=== PATIENT | female | born 1950 | race Two or more races ===

== ENCOUNTER → 2019-04-06 | Outpatient (CLI) | payer OTHER | END | disposition home or self-care (01) | LOC: MAMO-SONO 14:10 | DX: N60.01 Solitary cyst of right breast (principal); N60.02 Solitary cyst of left breast; D25.2 Subserosal leiomyoma of uterus; Z12.31 Encounter for screening mammogram for malignant neoplasm of breast; Z87.898 Personal history of other specified conditions ==

== ENCOUNTER 2019-06-17 10:55 | Outpatient (CLI) | payer OTHER | END 2019-06-17 11:04 | disposition home or self-care (01) | LOC: NUCLEAR 10:55 | DX: M81.0 Age-related osteoporosis without current pathological fracture (principal) ==

== ENCOUNTER 2020-07-19 14:45 | Outpatient (CLI) | payer OTHER | END 2020-07-19 15:00 | disposition home or self-care (01) | LOC: MAMO-SONO 14:45 | PROVIDERS: ATTEND Specialist | DX: Z12.31 Encounter for screening mammogram for malignant neoplasm of breast (principal); N60.01 Solitary cyst of right breast; N60.02 Solitary cyst of left breast ==

== ENCOUNTER 2020-10-04 10:15 | Outpatient (CLI) | payer OTHER | END 2020-10-04 15:24 | disposition home or self-care (01) | LOC: TOM 10:15 → RAD 10:15 | PROVIDERS: ATTEND Internal Medicine | DX: Q44.6 Cystic disease of liver (principal); Q61.02 Congenital multiple renal cysts; K57.90 Diverticulosis of intestine, part unspecified, without perforation or abscess without bleeding; R10.84 Generalized abdominal pain; I10 Essential (primary) hypertension ==

== ENCOUNTER 2021-03-08 10:11 | Outpatient (CLI) | payer OTHER | END 2021-03-08 10:15 | disposition home or self-care (01) | LOC: NUCLEAR 10:11 | PROVIDERS: ATTEND Internal Medicine | DX: I65.23 Occlusion and stenosis of bilateral carotid arteries (principal) ==

== ENCOUNTER 2021-03-19 10:50 | Outpatient (CLI) | payer OTHER | END 2021-03-19 10:59 | disposition home or self-care (01) | LOC: MRI 10:50 | PROVIDERS: ATTEND Internal Medicine | DX: M25.561 Pain in right knee (principal) | CPT/HCPCS: 73721 ==

== ENCOUNTER 2021-08-15 13:16 | Outpatient (CLI) | payer OTHER | END 2021-08-15 13:30 | disposition home or self-care (01) | LOC: MAMO-SONO 13:16 | DX: R92.0 Mammographic microcalcification found on diagnostic imaging of breast (principal); N60.01 Solitary cyst of right breast; N60.02 Solitary cyst of left breast ==

== ENCOUNTER → 2021-08-21 13:02 | Outpatient (CLI) | payer OTHER | END | disposition home or self-care (01) | LOC: NUCLEAR 13:02 | PROVIDERS: ATTEND Specialist | DX: M81.0 Age-related osteoporosis without current pathological fracture (principal) ==

== ENCOUNTER → 2021-09-11 | Outpatient (CLI) | payer OTHER | END | disposition home or self-care (01) | LOC: NUCLEAR 08-29 07:00 | PROVIDERS: ATTEND Internal Medicine | DX: E21.3 Hyperparathyroidism, unspecified (principal) | CPT/HCPCS: 78070; A9500 ==

== ENCOUNTER 2021-10-03 11:41 | Outpatient (CLI) | payer OTHER | END 2021-10-03 11:48 | disposition home or self-care (01) | LOC: MRI 11:41 | PROVIDERS: ATTEND Orthopaedic Surgery | DX: M25.562 Pain in left knee (principal) | CPT/HCPCS: 73721 ==

== ENCOUNTER 2021-10-22 10:42 | Outpatient (CLI) | payer OTHER | END 2021-10-22 10:50 | disposition home or self-care (01) | LOC: RAD 10:42 | DX: M81.0 Age-related osteoporosis without current pathological fracture (principal); M54.16 Radiculopathy, lumbar region | CPT/HCPCS: 72148 ==

== ENCOUNTER 2022-02-10 12:37 | Outpatient (CLI) | payer OTHER | END 2022-02-10 12:48 | disposition home or self-care (01) | LOC: RAD 12:37 | PROVIDERS: ATTEND Orthopaedic Surgery | DX: M25.561 Pain in right knee (principal); M25.562 Pain in left knee; M25.879 Other specified joint disorders, unspecified ankle and foot ==

== ENCOUNTER 2022-09-23 13:17 | Outpatient (CLI) | payer OTHER | END 2022-09-23 13:38 | disposition home or self-care (01) | LOC: MAMO-SONO 13:17 | PROVIDERS: ATTEND Specialist | DX: N60.01 Solitary cyst of right breast (principal); N60.02 Solitary cyst of left breast ==

== ENCOUNTER 2023-09-29 13:21 | Outpatient (CLI) | payer OTHER | END 2023-09-29 13:26 | disposition home or self-care (01) | LOC: RAD 13:21 | PROVIDERS: ATTEND Specialist | DX: N60.01 Solitary cyst of right breast (principal); N60.02 Solitary cyst of left breast; M25.561 Pain in right knee; M25.562 Pain in left knee; Z12.31 Encounter for screening mammogram for malignant neoplasm of breast ==

== ENCOUNTER → 2023-09-29 | Outpatient (CLI) | payer OTHER | END | disposition home or self-care (01) | LOC: NUCLEAR 11:30 | PROVIDERS: ATTEND Specialist | DX: M81.0 Age-related osteoporosis without current pathological fracture (principal) ==

== ENCOUNTER 2023-10-09 08:35 | Outpatient (CLI) | payer OTHER | END 2023-10-09 08:46 | disposition home or self-care (01) | LOC: RAD 08:35 | PROVIDERS: ATTEND Orthopaedic Surgery | DX: S83.200A Bucket-handle tear of unspecified meniscus, current injury, right knee, initial encounter (principal); E10.9 Type 1 diabetes mellitus without complications; K92.2 Gastrointestinal hemorrhage, unspecified | CPT/HCPCS: 73721 ==

== ENCOUNTER 2024-06-29 13:50 | Outpatient (CLI) | payer OTHER | END 2024-06-29 13:57 | disposition home or self-care (01) | LOC: RAD 13:50 | PROVIDERS: ATTEND Orthopaedic Surgery | DX: M25.561 Pain in right knee (principal); M25.562 Pain in left knee ==

== ENCOUNTER 2024-10-20 09:40 | Outpatient (CLI) | payer OTHER | END 2024-10-20 09:45 | disposition home or self-care (01) | LOC: MAMO-SONO 09:40 | PROVIDERS: ATTEND Specialist | DX: N60.01 Solitary cyst of right breast (principal); N60.02 Solitary cyst of left breast; J20.9 Acute bronchitis, unspecified; Z12.31 Encounter for screening mammogram for malignant neoplasm of breast ==

== ENCOUNTER 2025-02-22 09:59 | Outpatient (CLI) | payer OTHER | END 2025-02-22 10:01 | disposition home or self-care (01) | LOC: SONOGRAMA 09:59 | PROVIDERS: ATTEND Internal Medicine | DX: K76.0 Fatty (change of) liver, not elsewhere classified (principal); R10.9 Unspecified abdominal pain ==

== ENCOUNTER 2025-04-05 10:26 | Outpatient (CLI) | payer OTHER | END 2025-04-05 10:33 | disposition home or self-care (01) | LOC: MRI 10:26 | PROVIDERS: ATTEND Internal Medicine | DX: M51.26 Other intervertebral disc displacement, lumbar region (principal) | CPT/HCPCS: 72148 ==

== ENCOUNTER → 2025-10-24 | Outpatient (CLI) | payer OTHER | END | disposition home or self-care (01) | LOC: MAMO-SONO 10:57 | PROVIDERS: ATTEND Internal Medicine | DX: N60.21 Fibroadenosis of right breast (principal); N60.22 Fibroadenosis of left breast; Z12.31 Encounter for screening mammogram for malignant neoplasm of breast ==